=== PATIENT | female | born 1980 | race Caucasian/White ===

== ENCOUNTER 2016-04-25 11:13 | Day surgery (SDC) | payer OTHER ==
[~2016-04-25] VITALS: Ht 170.2 cm; Wt 99.5 kg
[2016-04-25] VITALS (10 sets, daily range): BP systolic 110–133; BP diastolic 54–74; PULSE 60–104; RESP 14–17; O2SAT 95–100
[~2016-04-25 11:13] MED LIST: ACET-171 PO; ALBU8.5H2 INHALATION; CeFAZolin Inj 2 GM in IV Premix 1 EACH IV ONE; EXCEDRIN EXTRA STR; Lactated Ringer's 1,000 ML IV SCH; SUMA6NDL SQ; ZOLM5SPR5 NASAL
[2016-04-25] MEDS ORDERED: HYDROmorphone 2 mg/mL Inj ONE (11:14)
[2016-04-25] MEDS ORDERED: Ondansetron 2 mg/mL 2 mL Inj ONE (11:14)
[2016-04-25] MEDS ORDERED: ROPIVACAINE ONE (11:14)
[2016-04-25] MEDS ORDERED: Dexamethasone 4 mg/mL Inj ONE (11:14)
[2016-04-25] MEDS ORDERED: Propofol 10,000 mCg/mL 20 mL Inj ONE (11:14)
[2016-04-25] MEDS ORDERED: MetoCLOpramide 5 mg/mL 2 mL Inj ONE (11:14)
[2016-04-25] MEDS ORDERED: fentaNYL-PF 50 mCg/mL 2 mL Inj ONE (11:14)
[2016-04-25] MEDS ORDERED: Lactated Ringer's 1,000 ML IV ONE (12:06)
[2016-04-25] MEDS ORDERED: CeFAZolin Inj 2 gm / 50mL D5W IV ONE (12:14)
--- NOTE | 2016-04-25 13:35 | PCM.HPANE ---
Patient Data Surgeon Admitting Provider: Attending Provider:César Minaya DO Primary Care Physician:Smiley Cruz PA-C Other Provider:Ramya eNal Anesthesia Reason for Visit Left Knee Acl Tear Ht/WT & BMI Height (Feet): 5 Height (Inches): 7 Weight (Kilograms): 107.1 Body Mass Index 37.00 Allergies Coded Allergies: Sulfa (Sulfonamide Antibiotics) (Unverified Allergy, Unknown, 04/21/16) Past Anesthesia History Anesthesia History: Denies:: Abnormal Airway, Anesthesia Reactions (needed "more" than usual with last surgery), Difficult Intubation, Fam Anesthesia Reaction Diabetes History Hx Diabetes?: No MRSA MRSA: No Medications Hypertension Medication: No Home Meds Incl Beta Rafael: No Reported Medications Zolmitriptan Mesa (Zomig Mesa)5 Mg Spray5 Mg NASAL Q2H PRN migraines #1 INHALER NTE 10mg/24hr 04/19/16 Sumatriptan Succinate (Sumavel Dosepro)6 Mg/0.5 Ml Ndl.fr.inj6 Mg SQ PRN migraines NTE2 doses/24hrs 04/19/16 Albuterol HFA (Proair HFA)8.5 Gm Hfa.aer.ad2 Puffs INHALATION Q4H PRN For Shortness of Breath #1 INHALER 04/19/16 [excedrin extra str] No Conflict CheckUnknown Dose PRN For Pain 04/19/16 Acetaminophen 500 Mg Tablet1,000 Mg PO Q6H PRN For Pain 04/19/16 History History of ENT Problems?: Yes HEENT History: Positive for:: Sinus Problem (hx of rhinoplasty/ has hard time breathing thru nose) Denies:: Abnormal Airway Cataracts Difficult Intubation Dysphagia Glaucoma Hearing Problem TMJ Hx of Heart Problems?: No Cardiovascular History: Denies:: AICD Coronary Artery Disease Edema Heart Murmur Hypertension Irregular Heartbeat Pacemaker Peripheral Vascular Hx of Respiratory Problem?: Yes Respiratory History: Positive for:: Asthma Use of Inhalers / NEBS Denies:: COPD Emphysema Oxygen Administration Pneumonia Tuberculosis Use of C-PAP Machine Hx Neurologic Problems?: No Neurological History: Positive for:: Headaches (daily) Denies:: Alzheimer's Disease CVA Dementia Multiple Sclerosis Parkinson's Disease Seizures TIA Hx of GI Problems?: Yes Gastrointestinal History: Positive for:: Gall Bladder Disease (removed) Denies:: Cirrhosis Gastroesphageal Reflux Gastrointestinal Bleeding Heartburn Hepatitis Hiatal Hernia Liver Disease Rectal Bleeding Other GI Pertinent History: hx of bariatric surgery Hx of Problems?: No Genitourinary History: Denies:: Kidney Stones Urinary Tract Infection Female Hx: Denies:: Currently Problems with Breasts? Skin History: Denies:: History Skin Disorders? Pressure Ulcers Hx Musculoskeletal Problems?: Yes Musculoskeletal History: Positive for:: Back Injury (back strain) Musculoskeletal Trauma (left knee acl tear current admission problem) Denies:: Fibromyalgia Joint Replacement Myasthenia Gravis Osteoarthritis Rheumatoid Arthritis Systemic Lupus Hx of Psycho/Social Problems?: No Psycho Social History: Denies:: Anxiety Hx Depression Hx Surgeries?: Yes (bariatric surgery, tara, rhinoplasty. ) Hx Any Other Health Problems?: Yes Other History: Denies:: Cancer Thyroid Disease History Blood Transfusions: Positive for:: Accept Blood Products? Denies:: Blood Transfusions Hx Diabetes: No Hx Alcohol Use: YesAlcoholic Drinks Per Day: once monthlyHx Substance Use: No Have You Smoked inLast 12 mo: No Stop/Bang S-Snoring: Do You Snore Loudly: Yes T-Tired: feel tired, fatigued: Yes O-Obsered: Observed not breath: No P-Blood Pressure: treated: No B- Body Mass Index > 35 kg/m2: No A- Age over 50: No N- Neck Large Circumference: No G- Gender Male: No YOSEPH Total Score: 2 Risk Assessment Category Category 1A: Patient has history of documented sleep apnea, and HAS NOT received any narcotic, sedative or anesthesia administration during this stay. Category 1B: Patient has history of documented sleep apnea, and HAS received any narcotic , sedative or anesthesia administration during this stay Category 2: Patient has SUSPECTED Obstructive Sleep Apnea, and HAS received any narcotic , sedative or anesthesia administration during this stay. Category 3: Patient has SUSPECTED Obstructive Sleep Apnea and HAS NOT received narcotic, sedative or anesthesia administration during this stay. Category 4: Outpatient in Procedural Areas with known sleep apnea or who screen positive for High Risk via the STOP/BANG questionnaire. Exam Exam General Appearance: Alert, Oriented X3, Cooperative, No Acute Distress HEENT/AIRWAY: MP 3 Lungs: Clear to Auscultation Heart: Exam Unremarkable Plan Impression Patient chart reviewed, patient interviewed and anesthestic plan with risks, benefits, and alternatives discussed, and informed consent obtained. ASA Physical Status: ASA2 Mod Systemic Disease Anesthetic Plan: GA, Regional Block (adductor canal) Bene/Risks/Altern/Consents: Yes HP Complete Prior to Induction: Yes Guru Lama MD Apr 25, 2016 08:38
[2016-04-25] MEDS ORDERED: Lidocaine 1%-Epi 1:100,000 20 mL Inj INFILTRATE ONE (14:26)
[2016-04-25] MEDS ORDERED: Lactated Ringer's 500 ML IV PRN (14:48)
[2016-04-25] MEDS ORDERED: Lactated Ringer's 1,000 ML IV SCH (14:48)
[2016-04-25] MEDS ORDERED: fentaNYL-PF 50 mCg/mL 2 mL Inj IVPUSH PRN (14:50)
[2016-04-25] MEDS ORDERED: EPHEDrine Sulfate 50 mg/mL Inj IVPUSH PRN (14:50)
[2016-04-25] MEDS ORDERED: MetoCLOpramide 5 mg/mL 2 mL Inj IVPUSH PRN (14:50)
[2016-04-25] MEDS ORDERED: Phenylephrine 10,000 mCg/mL Inj IVPUSH PRN (14:50)
[2016-04-25] MEDS ORDERED: Dexamethasone 4 mg/mL Inj IVPUSH PRN (14:50)
[2016-04-25] MEDS ORDERED: Ondansetron 2 mg/mL 2 mL Inj IVPUSH PRN (14:50)
[2016-04-25] MEDS ORDERED: HYDROmorphone 1 mg/mL Inj IVPUSH PRN (14:50)
[2016-04-25] MEDS ORDERED: Acetaminophen IV 1,000 MG in IV Premix 1 EACH IV PRN (16:00)
--- NOTE | 2016-04-25 16:45 | PCM.ANEP1 ---
Post Anesthesia Phase 1 PACU Phase 1 Assessment Vital Signs Vital Signs Date Time Temp Pulse Resp B/P Pulse Ox O2 Delivery O2 Flow Rate FiO2 04/25/16 16:10 66 17 130/64 95 Room Air 04/25/16 16:05 85 17 126/72 100 Room Air 04/25/16 16:00 37.1 73 16 133/67 99 Room Air 04/25/16 11:30 36.8 60 14 122/54 97 Room Air Anesthetic Administered: GA, Regional Block Level of Alertness: Awake, talking ORTEGA's with Equal Strength: Yes Pain: No Nausea or Vomiting: No Oxygen Delivery: Room Air Lungs: Clear to Auscultation Dermatome Level: Full Sensation Guru Lama MD Apr 25, 2016 16:44
--- NOTE | 2016-04-25 16:45 | PCM.ANEP2 ---
Post Anesthesia Evaluation ASA/CMS Post Anesthesia VS in Patient's Normal Range?: Yes Resp Stable; Airway Patent?: Yes CV Function & Hydration Stable: Yes Mental Status Recovered?: Yes Pain control Satisfactory?: Yes N/V Control Satisfactory?: Yes Guru Lama MD Apr 25, 2016 16:45
--- NOTE | 2016-04-25 20:59 | OP ---
[address] [address] OPERATIVE REPORT PATIENT: CHARISSE MOISE : 1980 MR#: [id number] ADMIT: 04/25/2016 JOB ID: [id number] DATE OF SURGERY: 04/25/2016 SURGEON: César Minaya DO PREOPERATIVE DIAGNOSIS(ES): Left knee anterior cruciate ligament disruption. POSTOPERATIVE DIAGNOSIS(ES): Left knee anterior cruciate ligament disruption. PROCEDURE: Left knee anterior cruciate ligament reconstruction. FISHERIES TECHNICAL OFFICER: Skye Lowe PA-C and Natlaiia Huynh DO (R), GY3. ANESTHESIA: General with femoral nerve block. INDICATIONS: The patient is a 35-year-old female with left knee symptomatic instability following an injury while doing martial arts who wished to proceed with a left knee ACL reconstruction. We discussed risks, benefits, and possible complications of surgery including, but not limited to, injury to nerves and vessels, infection, bleeding, incomplete relief of symptoms, stiffness need for additional procedures. The patient had good understanding, all questions were answered. She wished to proceed. A surgical instrument mechanic was required for the successful completion of this procedure. PROCEDURE IN DETAIL: The patient was brought to the operating room. She was given a preoperative antibiotic and femoral nerve block. The left lower extremity was sterilely prepped and draped. An incision was made over the anteromedial and anterolateral knee at the joint line and the blunt trocar was introduced into the knee. Inspection was undertaken with the arthroscope. She was found to have pristine cartilage in the medial compartment. Medial meniscus was intact. Her ACL was torn and detached from the femoral attachment. Her PCL was intact. Her lateral compartment was intact and without any meniscal pathology or articular cartilage injury. She did have some patellofemoral chondromalacia, C3, with some loose cartilage on the undersurface of the patella which was gently debrided. I then removed the ACL remnant and on the back table Dorene Lowe PA-C prepared the graft with whipstitching the cadaveric tibialis anterior graft which was prepared and measured a 9. After preparation, a Ortiz guide was then placed into the knee and the pin was made to exit into the middle of her ACL footprint. This was then over-reamed to 9 mm and then we used an Arthrex FlipCutter for femoral tunnel preparation. The FlipCutter tunnel was positioned at the anatomic ACL femoral insertion, taking care to preserve a 1-2 mm posterior wall. The FlipCutter guide pin was advanced into the lateral femur and then the blade was flipped and locked and a 25 mm tunnel was reamed with a 40 mm overall tunnel length. The prepared graft was then passed through the tibial tunnel up through the joint and out through the femoral tunnel and the ACL tightrope was seated proximally. Tension was felt the graft was solid. The graft was then tightened up into the tunnel and then I went to exercise the knee and the graft released through the tunnel indicating to me that the proximal fixation had failed and was probably within the soft tissue. I therefore removed the ACL tightrope and placed a new tightrope, made a incision over the proximal lateral femur, dissected down onto the lateral femur, and again passed the graft and directly visualized that the ACL tightrope flipped and engaged on the cortex and had firm purchase, before then tightening and ratcheting up the graft into the socket. We then cycled the knee and had excellent femoral fixation and then secured it in the tibial side with a 25 mm tibial screw which had excellent purchase in the bone. The excess tendon was then cut and the knee felt very stable with anterior drawer and Vik's. The wounds were then closed with interrupted nylon to close the scope portals and proximal incision with 2-0 Vicryl to close the proximal incision and distal incision in the subcutaneous layers and 4-0 Monocryl to close the skin over the proximal tibia. Sterile dressings were applied and a hinged knee brace was applied locked in full extension. Blood loss was minimal. Postoperative protocol: Have the patient weightbear to tolerance. I would like her to use crutches for the first two weeks and use the hinged knee brace locked in full extension at all times until she is able to straight leg raise at which point she can open up the brace to 0-90. I would like her to work on range of motion 0-90 over the 1st six weeks and then progress her range of motion as tolerated. I would like her to avoid open chain exercises and avoid cutting, twisting-type movements and martial arts for a period of nine months until her graft has had a chance to fully mature. She was given a prescription for Ultram for pain as well as some Dilaudid p.o. if needed for breakthrough pain.
== END 2016-04-25 23:59 | disposition home or self-care (01) ==
LOC: SAS 11:13
PROVIDERS: ATTEND Orthopaedic Surgery
DX: S83.512A Sprain of anterior cruciate ligament of left knee, initial encounter (principal); M22.42 Chondromalacia patellae, left knee; X50.0XXA Overexertion from strenuous movement or load, initial encounter; Y93.75 Activity, martial arts; Y92.9 Unspecified place or not applicable; G43.909 Migraine, unspecified, not intractable, without status migrainosus
CPT/HCPCS: 29881; 29888; C1713; C1762; J0690; J1100; J1170; J2175; J2250; J2405; J2765; J2795; J3010; J7120